=== PATIENT | male | born 1990 | race Caucasian/White ===

== ENCOUNTER 2022-04-04 18:57 | Emergency (ER) | payer SELFPAY ==
[~2022-04-04] VITALS: Ht 165.1 cm; Wt 58.0 kg
[2022-04-04 19:02] VITALS: BP 107/58
[2022-04-04] MEDS ORDERED: LIDOCAINE HCL/PF 1% 10 MG/ML 5ML VIAL INFIL ONE (21:00)
[2022-04-04] MEDS ORDERED: TETANUS, DIPHTHERIA, PERTUSSIS VAC/PF 0.5ML (>10YR OLD) IM ONE (21:00)
[2022-04-04] MEDS ORDERED: BACITRACIN ZINC OINT UDPKT TOP ONE (21:00)
== END 2022-04-04 22:15 | disposition home or self-care (01) ==
LOC: ER 18:57
DX: S61.211A Laceration without foreign body of left index finger without damage to nail, initial encounter (principal); W45.8XXA Other foreign body or object entering through skin, initial encounter; Y93.89 Activity, other specified; Y92.89 Other specified places as the place of occurrence of the external cause; Y99.8 Other external cause status
CPT/HCPCS: 12001; 90471; 90715; 99283; J3490